=== PATIENT | male | born 1970 | race Caucasian/White ===

== ENCOUNTER 2017-02-20 16:15 | Inpatient (IN) | payer OTHER ==
--- NOTE | ~2017-02-20 | PA ---
Unit #: [id number] #: [id number] Patient: DARIEN MITCHELL [id number] [facility] [address] [place] [address] [id number] MR#: [id number] NAME: DARIEN MITCHELL. ROOM: P171 Age: 46 Sex: M Admission Date: 02/20/2017 : 1970 Date of Assessment: 02/20/2017 Attending Physician: Manuel Prado M.D. Admitting Physician: Manuel Prado M.D. Primary Care Physician: Primary Care Physician No PSYCHIATRIC ASSESSMENT IDENTIFYING DATA Mr. Mitchell is a 46-year-old single white male, who is a resident of [place], [place], and was self-referred to the hospital on a voluntary basis. CHIEF COMPLAINT Alcohol abuse. HISTORY OF PRESENT ILLNESS The patient is a 46-year-old white male with history of alcohol dependence, presented himself to the hospital stating that he has been drinking for the past 20 years and that he has been drinking a fifth of liquor daily with last drink this morning, and reports that he detox at [facility] last month, but only stayed sober for about 2 weeks and reports limited poor social support system and does report increasing depression, anxiety, irritability, restlessness, feelings of hopelessness and helplessness, but denies any current suicidal ideations, intent, or plan. SUBSTANCE ABUSE HISTORY The patient reports history of alcohol dependence and has been drinking since he was 26-year-old and currently has been drinking a fifth of alcohol on a daily basis and denies any other substance abuse. PAST PSYCHIATRIC HISTORY The patient has a history of one inpatient chemical dependency treatment last month, but has not been able to stay sober. Currently, he is not active in any treatment program, he is not seeing a psychiatrist, and he is not taking any psychotropic medications. PAST MEDICAL HISTORY Bronchitis. ALLERGIES No known medication allergies. PERSONAL AND SOCIAL HISTORY A 46-year-old white male, who reports that he is single, unemployed, and lives with a friend, has poor social support system. MENTAL STATUS EXAMINATION Middle-aged, white male, who is casually dressed with fair personal hygiene, appears to be in no acute distress or discomfort. He was awake Unit #: [id number] #: [id number] Patient: DARIEN MITCHELL and alert on interaction with intact orientation. His mood was anxious and depressed with a congruent affect. Speech was slow and restricted in content. His thought processes were disorganized with some looseness of associations. He denies any suicidal or homicidal ideations and also denies any auditory or visual hallucinations. His insight and judgment remain significantly impaired. DIAGNOSTIC IMPRESSION Psychiatric: Alcohol dependence, moderate, in acute withdrawals; alcohol-induced mood disorder. Medical: Bronchitis. Stressors: Moderate psychosocial stressors. TREATMENT PLAN 1. The patient has presented with history of substance abuse and mood disorder, and has been decompensating and will need inpatient hospitalization for detoxification, safety, and stabilization. We will start him on detox protocol. We will monitor for any worsening withdrawal symptoms. 2. Supportive therapy was provided to the patient. 3. Safe, structured, and nourishing environment will be provided. ESTIMATED LENGTH OF STAY 4 to 5 days. WILLINGNESS TO HELP SELF The patient appears to be willing to help self. STRENGTHS 1. Communicative. 2. Cooperative. PROBLEMS 1. Chronic dysphoric symptoms. 2. Chronic chemical dependency. 3. Poor social support system. DISCHARGE CRITERIA This will be contingent upon the patient's ability to go through detox without having any significant withdrawal symptoms and his ability to stay safe to himself, particularly after discharge from the hospital. Dictated by... Edin Mcneal/darwin TD: 02/21/2017 11:56 JOB #: [id number] Unit #: [id number] #: [id number] Patient: DARIEN MITCHELL PSYCHIATRIC ASSESSMENT Page 1 of 1 X Manuel Prado MD PSYCHIATRIC ASSESSMENT
--- NOTE | ~2017-02-20 | PN ---
Unit #: [id number] #: [id number] Patient: DARIEN GRIGGS [id number] [facility] [address] [place] [address] [id number] I MR#: [id number] NAME: DARIEN GRIGGS. ROOM: 71 Age: 46 Sex: M Admission Date: 02/20/2017 : 1970 Attending Physician: Manuel Prado M.D. Admitting Physician: Manuel Prado M.D. Primary Care Physician: Primary Care Physician Leslee NGUYEN NOTES DATE OF SERVICE 02/22/2017 DISCUSSION Mr. Griggs is a 46-year-old white male with (1) __ mood disorder, substance abuse who was seen today. Chart was reviewed and case was discussed with the staff. He has been anxious, withdrawn, and rather seclusive to himself and does appear to be in some distress and discomfort and (2) __ individual function or take care of his personal hygiene. Meanwhile, he has been taking the medications and tolerating them fairly well. MENTAL STATUS EXAMINATION Middle-aged white male who is casually dressed with fair personal hygiene, appears to be in no acute distress or discomfort. The patient was awake and alert with impaired attention and concentration. His mood is anxious with congruent affect. He denies any current suicidal or homicidal ideation. His insight and judgment remain slightly impaired. TREATMENT PLAN 1. We will continue him on his current treatment protocol and the detox medications. We will monitor his response and make further adjustments as needed. 2. We will continue to follow up. Dictated by... Edin Mcneal/gokul TD: 02/23/2017 05:02 JOB #: [id number] Unit #: [id number] #: [id number] Patient: DARIEN GRIGGS CLAUDE NGUYEN NOTES Page 1 of 1 X Manuel Prado MD PROGRESS NOTE
--- NOTE | ~2017-02-20 | HP ---
Unit #: [id number] #: [id number] Patient: KAMERON GRIGGS [id number] [place] [address] [id number] I MR#: [id number] NAME: KAMERON GRIGGS. ROOM: [facility] Age: 46 Sex: M Admission Date: 02/20/2017 : 1970 Attending Physician: Manuel Prado M.D. Admitting Physician: Manuel Prado M.D. Primary Care Physician: Primary Care Physician No HISTORY AND PHYSICAL HISTORY OF PRESENT ILLNESS Kameron is a 46-year-old male admitted on on 02/20/2017 for detox from alcohol. PAST MEDICAL HISTORY None. PAST SURGICAL HISTORY Inguinal hernia repair. ALLERGIES No known drug allergies. SOCIAL HISTORY He smokes 1 pack of cigarettes daily. Uses at least one fifth of liquor daily and has a history of meth and opiate use. He is currently single and living with a friend. FAMILY HISTORY Noncontributory. REVIEW OF SYSTEMS CONSTITUTIONAL: No fever or chills. HEENT: Denies any sore throat, ear pain or runny nose. CARDIOVASCULAR: Denies chest pain, irregular heart rhythm or palpitations. CHEST: Denies shortness of breath or cough. No hemoptysis. GASTROINTESTINAL: Denies nausea, vomiting, diarrhea or chronic constipation. ENDOCRINE: Denies history of increased thirst or urination. No recent significant weight loss or gain. GENITOURINARY: Denies dysuria, frequency, or hematuria. SKIN: Denies any rashes. HEMATOLOGIC: Denies history of increased bleeding or bruising. MUSCULOSKELETAL: Denies any hot, swollen joints. No generalized muscle pain. NEUROLOGIC: Denies problems with vision or speech. No frequent, severe headaches. No numbness, tingling or weakness in any extremities. Denies loss of bladder or bowel control. CURRENT MEDICATIONS 1. Levofloxacin. 2. Benzonatate. 3. Prednisone. Unit #: [id number] #: [id number] Patient: KAMERON GRIGGS PHYSICAL EXAMINATION GENERAL: Alert, oriented, in no acute distress. VITAL SIGNS: Blood pressure 162/96, heart rate 68, respirations 16. HEIGHT: 6 feet 5. WEIGHT: 235 pounds. SKIN: Warm and dry without rash or lesion. HEENT: Normocephalic. TMs not viewed. Oral and nasal passages clear. Conjunctivae clear. PERRLA. EOMs intact. NECK: Supple without lymphadenopathy or thyromegaly. HEART: Regular rate and rhythm without murmur. LUNGS: Clear. ABDOMEN: Soft, nontender, without masses or hepatosplenomegaly. : Not done. EXTREMITIES: No evidence of cyanosis, clubbing or edema. Moves all without focal deficit. NEUROLOGICAL: Grossly within normal limits. Cranial Nerves: II: Visual reese are intact. III, IV AND : Extraocular movements are intact. Pupils are equal, round and reactive to light. V: Facial sensation is grossly normal. VII: Facial movements and expression are normal. VIII: Auditory acuity grossly intact. IX, X: Uvula is midline. Phonation is normal. XI: Patient shrugs shoulders and turns head normally. XII: Tongue protrudes in the midline. Sensory and Motor Function: Sensory and motor sensation is grossly normal. Motor: moves all extremities well. Coordination: Gait is normal. Deep Tendon Reflexes: Intact. IMPRESSION Psychiatric admission. RECOMMENDATIONS PSYCHIATRIC: Per psychiatrist. MEDICAL: No contraindications to participate in facility's activities. MEDICAL PROGNOSIS Good. MEDICAL CONDITION Stable. Dictated by... Lester Harley/amna TD: 02/21/2017 15:47 JOB #: [id number] Unit #: [id number] #: [id number] Patient: KAMERON GRIGGS HISTORY AND PHYSICAL Page 1 of 1 X ABBY SPIVEY APRN HISTORY AND PHYSICAL
--- NOTE | ~2017-02-20 | PN ---
Unit #: [id number] #: [id number] Patient: DARIEN MITCHELL [id number] [facility] [address] [place] [address] [id number] I MR#: [id number] NAME: DARIEN MITCHELL. ROOM: [facility] Age: 46 Sex: M Admission Date: 02/20/2017 : 1970 Attending Physician: Manuel Prado M.D. Admitting Physician: Manuel Prado M.D. Primary Care Physician: Primary Care Physician Leslee NGUYEN NOTES DATE 02/20/2017 DISCUSSION Mr. Mitchell is a 46-year-old white male with mood disorder. He was seen today and chart was reviewed and case was discussed with the staff. He has been anxious, withdrawn and rather seclusive to himself. He does not seem to be in any acute distress or discomfort and hardly able to carry on any meaningful conversation. He was also noted to have poor personal hygiene indicating he has not been able to take care of his hygiene. He has been taking the medication and tolerating them fairly well with no reported side effects. MENTAL STATUS EXAMINATION Middle-age white male who was casually dressed with marginal personal hygiene and appears to be in no acute distress or discomfort. He was awake and alert with impaired attention and concentration. His mood was anxious with a congruent affect. His speech was slow and tangential. Thought processes disorganized . His insight and judgment remains significantly impaired. TREATMENT PLAN 1. We will continue his current medications and treatment protocol. We will monitor his response to medications and make further adjustments as needed. 2. Will continue to follow up. Dictated by... Manuel Prado M.D. IAA/gerson TD: 02/22/2017 11:54 JOB #: [id number] Unit #: [id number] #: [id number] Patient: DARIEN MITCHELL CLAUDE NGUYEN NOTES Page 1 of 1 X Manuel Prado MD PROGRESS NOTE
--- NOTE | ~2017-02-20 | PN ---
Unit #: [id number] #: [id number] Patient: DARIEN GRIGGS [id number] [facility] [address] [place] [address] [id number] I MR#: [id number] NAME: DARIEN GRIGGS. ROOM: [facility] Age: 46 Sex: M Admission Date: 02/20/2017 : 1970 Attending Physician: Manuel Prado M.D. Admitting Physician: Manuel Prado M.D. Primary Care Physician: Primary Care Physician Leslee NGUYEN NOTES DATE OF SERVICE 02/25/2017 DISCUSSION Mr. Griggs is a 46-year-old white male who was seen today. Chart was reviewed and case was discussed with the staff. He has been anxious and withdrawn though has not shown any agitation or irritability and has been cooperative with the treatment recommendations and has been taking the medications and tolerating them fairly well with no reported side effects. MENTAL STATUS EXAMINATION Middle-aged white male who is casually dressed with fair personal hygiene, appears to be in no acute distress or discomfort. The patient was awake and alert on interaction with intact orientation. His mood is anxious with a congruent affect. Speech is slow and goal-directed. He denies any suicidal or homicidal ideations and also denies any auditory or visual hallucinations. His insight and judgment remain slightly impaired. TREATMENT PLAN 1. We will continue him on his current medications and treatment protocol. We will monitor his response to the medications and make further adjustments as needed. 2. We will continue to follow up. Dictated by... Edin Mcneal/gokul TD: 02/26/2017 09:05 JOB #: [id number] Unit #: [id number] #: [id number] Patient: DARIEN GRIGGS [facility] PROGRESS NOTES Page 1 of 1 X Manuel Prado MD PROGRESS NOTE
--- NOTE | ~2017-02-20 | PN ---
Unit #: [id number] #: [id number] Patient: DARIEN GRIGGS [id number] [facility] [address] [place] [address] [id number] I MR#: [id number] NAME: DARIEN GRIGGS. ROOM: 71 Age: 46 Sex: M Admission Date: 02/20/2017 : 1970 Attending Physician: Manuel Prado M.D. Admitting Physician: Manuel Prado M.D. Primary Care Physician: Primary Care Physician Leslee NGUYEN NOTES DATE 02/23/2017 DISCUSSION Mr. Griggs is a 46-year-old, white male with substance abuse and mood disorder who was seen today and chart was reviewed and case was discussed with the staff. He has been anxious, withdrawn and rather seclusive to himself. Meanwhile, he has been compliant with treatment recommendations. He has been taking medications and tolerating them fairly well with no reported side effects. MENTAL STATUS EXAM Middle-aged white male who was casually dressed with fair personal hygiene, appears to be in no acute distress or discomfort. He was awake and alert on interaction with intact orientation. His mood was anxious with congruent affect. He denies any suicidal or homicidal ideation. Also, denies any auditory or visual hallucinations. His insight and judgement remains slightly impaired. TREATMENT PLAN 1. We will continue him on his current medications and treatment protocol. We will monitor his response to the medication and make further adjustments as needed. 2. We will continue to follow up. Dictated by... Edin Mcneal/gareth TD: 02/24/2017 02:01 JOB #: [id number] Unit #: [id number] #: [id number] Patient: DARIEN GRIGGS [facility] PROGRESS NOTES Page 1 of 1 X Manuel Prado MD PROGRESS NOTE
--- NOTE | ~2017-02-20 | PN ---
Unit #: [id number] #: [id number] Patient: DARIEN GRIGGS [id number] [facility] [address] [place] [address] [id number] I MR#: [id number] NAME: DARIEN GRIGGS. ROOM: P171 Age: 46 Sex: M Admission Date: 02/20/2017 : 1970 Attending Physician: Manuel Prado M.D. Admitting Physician: Manuel Prado M.D. Primary Care Physician: Primary Care Physician Leslee ARCE PROGRESS NOTES DATE OF SERVICE: 02/24/2017 SUBJECTIVE Mr. Griggs is a 46-year-old white male, who was seen today and chart was reviewed and case was discussed with the staff. He has been anxious, withdrawn, though has not shown any agitation, irritability, or behavioral problems, and has been cooperative with treatment recommendation and has been taking medications and tolerating them fairly well with no reported side effects. MENTAL STATUS EXAMINATION Middle-aged white male, who was casually dressed with fair personal hygiene, appears to be in no acute distress or discomfort. He was awake and alert on interaction with intact orientation. His mood was anxious with a congruent affect. He denies any suicidal or homicidal ideations and also denies any auditory or visual hallucinations. His insight and judgment remain slightly impaired. TREATMENT PLAN 1. We will continue him on his current treatment protocol. We will monitor his response and make further adjustments as needed. 2. We will continue to follow up. Dictated by... Edin Mcneal/darwin TD: 02/24/2017 08:29 JOB #: [id number] [facility] PROGRESS NOTES Page 1 of 1 X Manuel Prado MD X PROGRESS NOTE
--- NOTE | ~2017-02-20 | DS ---
Unit #: [id number] #: [id number] Patient: [facility] MITCHELL [id number] [facility] [address] [place] [address] [id number] I MR#: [id number] NAME: DARIEN MITCHELL. ROOM: 71 Age: 46 Sex: M Admission Date: 02/20/2017 : 1970 Discharge Date: 02/26/2017 Attending Physician: Manuel Prado M.D. Primary Care Physician: Primary Care Physician No DISCHARGE SUMMARY IDENTIFYING DATA Mr. Mitchell is a 46-year-old single white male, who is a resident of [place], [place], and was self-referred to the hospital on a voluntary basis. DISCHARGE DIAGNOSES Psychiatric: Alcohol dependence, moderate, in acute withdrawals; alcohol-induced mood disorder. Medical: Bronchitis. Stressors: Moderate psychosocial stressors. HISTORY OF PRESENT ILLNESS Please see initial psychiatric evaluation for details. PAST PSYCHIATRIC HISTORY Please see initial psychiatric evaluation for details. PAST MEDICAL HISTORY Please see initial psychiatric evaluation for details. HOSPITAL COURSE The patient was admitted to the adult chemical dependency unit at [facility] kristi Mehta and was oriented to the hospital environment. Routine p.r.n. medications were initiated, and he was started back on his home medication and detox protocol was initiated and was closely monitored. He was taking the medications regularly and was tolerating them fairly well and was able to come out of the detox without any complications and was willing to continue treatment on an outpatient basis and as such, it was decided that he will be discharged home and will continue treatment on an outpatient basis. DISCHARGE MEDICATIONS None. DISCHARGE CONDITION Stable. PROGNOSIS Fair. Dictated by... Manuel Prado M.D. Unit #: [id number] #: [id number] Patient: DARIEN MITCHELL IAA/modl TD: 02/26/2017 06:45 JOB #: [id number] DISCHARGE SUMMARY Page 1 of 1 X Manuel Prado MD X DISCHARGE SUMMARY
[2017-02-21 12:30] LABS: BASOPHIL% 0.7 % (0-2.5); EOSINOPHIL# 0.1 X10e3 (0-0.7); EOSINOPHIL% 0.7 % (0.0-7.0); HEMATOCRIT 42.3 % (38.0-50.0); LYMPHOCYTE# 2.9 X10e3 (1.0-3.5); LYMPHOCYTE% 39.9 % (17.0-45.0); MEAN CELL VOLUME 101.7 FL (83-96); MEAN CORPUSCULAR HEMOGLOBIN 33.7 PG (28-34); MEAN CORPUSCULAR HGB CONC 33.1 g/dL (30-36); MEAN PLATELET VOLUME 9.7 FL (6.5-11.5); MONOCYTE# 0.6 X10e3 (0-1.0); MONOCYTE% 7.7 % (3.0-12.0); NEUTROPHIL# 3.7 X10e3 (1.5-7.1); PLATELET COUNT 183 X10e3 (140-420); RED BLOOD COUNT 4.16 X10e (3.90-5.60); RED CELL DISTRIBUTION WIDTH 14.2 % (11.0-15.5); WHITE BLOOD COUNT 7.2 X10e3 (4.0-10.5)
[2017-02-21 12:37] LABS: DIFF IND NO
[2017-02-21 13:03] LABS: ALBUMIN SERUM 3.1 g/dL (3.5-5.0); BILIRUBIN,TOTAL 0.7 mg/dL (0.2-2.0); CALCIUM SERUM 8.5 mg/dL (8.4-10.2); GLOM FILT RATE Estimated 89.2 mL/min (>60); POTASSIUM 5.2 mmol/L (3.5-5.1); PROTEIN TOTAL SERUM 6.1 g/dL (6.0-8.3)
[2017-02-24 09:40] LABS: URINE APPEARANCE CLEAR; URINE BILIRUBIN NEG (NEG); URINE BLOOD NEG (NEG); URINE COLOR DK YELLOW; URINE GLUCOSE NEG (NEG); URINE KETONE NEG (NEG); URINE LEUKOCYTE ESTERASE NEG (NEG); URINE NITRATE NEG (NEG); URINE PH 6.5 (5-8); URINE PROTEIN NEG (NEG); URINE SPECIFIC GRAVITY 1.028 (1.003-1.035)
[2017-02-24 10:00] LABS: AMPHETAMINE NEG (NEG); BARBITURATES NEG (NEG); BENZODIAZEPINES NEG (NEG); COCAINE NEG (NEG); MARIJUANA NEG (NEG); OPIATES NEG (NEG); TRICYCLIC ANTIDEPRESSANTS NEG (NEG); U METHADONE NEG (NEG)
== END 2017-02-26 09:38 | DRG 897 ==
LOC: P1E 17:02
PROVIDERS: Psychiatry & Neurology Psychiatry
PROC: HZ2ZZZZ Detoxification Services for Substance Abuse Treatment (ICD-10-PCS; principal; 2017-02-20)
DX: F10.230 Alcohol dependence with withdrawal, uncomplicated (principal); F10.24 Alcohol dependence with alcohol-induced mood disorder; J40 Bronchitis, not specified as acute or chronic; F17.210 Nicotine dependence, cigarettes, uncomplicated
CPT/HCPCS: 80053; 80307; 81003; 85025; 86592